=== PATIENT | male | born 1985 ===

== ENCOUNTER 2017-07-15 08:41 | Outpatient (CLI) | payer OTHER ==
[~2017-07-15] VITALS: Ht 193 cm; Wt 86.2 kg
== END 2017-07-15 09:00 | disposition home or self-care (01) ==
LOC: OFIC 805 08:41
DX: H61.22 Impacted cerumen, left ear (principal); H90.42 Sensorineural hearing loss, unilateral, left ear, with unrestricted hearing on the contralateral side